=== PATIENT | female | born 1970 | race Caucasian/White ===

== ENCOUNTER 2017-10-31 08:46 | Emergency (ER) | payer SELFPAY ==
[~2017-10-31] VITALS: Ht 162.6 cm; Wt 79.4 kg
[2017-10-31 08:54] VITALS: Ht 162.6 cm; Wt 79.4 kg
[2017-10-31 09:55] VITALS: BP 138/87
== END 2017-10-31 09:55 | disposition home or self-care (01) ==
LOC: ED 08:46
DX: N39.0 Urinary tract infection, site not specified (principal)